=== PATIENT | male | born 1955 | race Caucasian/White ===

== ENCOUNTER 2017-09-03 15:51 | Emergency (ER) | payer MEDICARE ==
[~2017-09-03] VITALS: Ht 190.5 cm; Wt 150.0 kg
[2017-09-03 16:55] LABS: HEMATOCRIT 41.1 % (39.0-50.0); HEMOGLOBIN 13.9 g/dl (14.0-18.0); IMMATURE GRANULOCYTES 0.7 % (0.0-1.0); MEAN CELL VOLUME 90.5 fL CALC (80.0-100.0); MEAN CORPUSCULAR HGB 30.6 pG CALC (26.0-32.0); MEAN CORPUSCULAR HGB CONC 33.8 g/L CALC (32.0-36.0); NEUT# 19.6 thou/uL (1.82-7.42); RED BLOOD COUNT 4.54 mill/uL (4.70-6.10); RED CELL DISTRI WIDTH 14.4 % (11.5-15.5)
[2017-09-03 17:10] LABS: ALBUMIN 5.2 g/dL (3.2-5.0); ALKALINE PHOSPHATASE 82 u/l (38-126); ANION GAP 20 (6-22 (CALC)); BILIRUBIN, TOTAL 0.7 mg/dL (0.0-1.4); BUN 17 mg/dL (8-23); BUN/CREATININE RATIO 14 (12-20 (CALC)); CARBON DIOXIDE 24 mmol/l (22-30); CHLORIDE 99 mmol/l (95-108); CREATININE 1.2 mg/dL (0.7-1.3); GFR > 60 ML/MIN (>=60 (CALC)); GFR FOR AFR.AMER. > 60 ML/MIN (>=60 (CALC)); GLUCOSE 125 mg/dL (82-115); POTASSIUM 4.4 mmol/l (3.5-5.1); SGOT/AST 33 u/l (19-48); SGPT/ALT 57 u/l (11-66); SODIUM 138 mmol/l (137-146); TOTAL PROTEIN 8.3 g/dL (6.3-8.2)
[2017-09-03] MEDS ORDERED: GABAPENTIN100 MG PO (18:35)
[2017-09-03] MEDS ORDERED: AMOXICILLIN500 MG PO (18:36)
[2017-09-03] MEDS ORDERED: MOTRIN800 MG PO (18:36)
[2017-09-03] MEDS ORDERED: FISH OIL1000 MG PO (18:36)
[2017-09-03] MEDS ORDERED: ASPIRIN ADULT L81 M2 PO (18:38)
[2017-09-03] MEDS ORDERED: AMLODIPINE BESYL5 MG PO (18:38)
[2017-09-03 22:45] VITALS: BP 118/60
--- NOTE | 2017-09-05 14:39 | NUR ---
CULTURE RESULTS FAXED TO [address] [facility] AT [facility]
== END 2017-09-03 22:45 ==
LOC: ED 15:51
PROVIDERS: Emergency Medicine
DX: T81.4XXA Infection following a procedure, initial encounter (principal); L03.312 Cellulitis of back [any part except buttock and flank]; L02.212 Cutaneous abscess of back [any part, except buttock and flank]; R50.9 Fever, unspecified; D72.829 Elevated white blood cell count, unspecified; B96.20 Unspecified Escherichia coli [E. coli] as the cause of diseases classified elsewhere

== ENCOUNTER 2019-03-02 07:50 | Day surgery (SDC) | payer MEDICARE ==
[~2019-03-02 07:50] MED LIST: AMLODIPINE BESYL5 MG PO; AMOXICILLIN500 MG PO; ASPIRIN ADULT L81 M2 PO; ASPIRIN LOW DOS81 M1 PO; FISH OIL1000 MG PO; GABAPENTIN100 MG PO; MOTRIN800 MG PO; MULTIVITAMIN ME1 TA1; OMEGA 3340 MG PO; SYSTANE GEL1 ML OU; VANCOMYCIN IV
[2019-03-02 09:21] VITALS: BP 122/74
== END 2019-03-02 09:30 | disposition home or self-care (01) ==
LOC: ENDO 07:50
PROVIDERS: ATTEND Surgery
PROC: 0DJD8ZZ Inspection of Lower Intestinal Tract, Via Natural or Artificial Opening Endoscopic (ICD-10-PCS; principal; 2019-03-02)
DX: Z12.11 Encounter for screening for malignant neoplasm of colon (principal); K64.8 Other hemorrhoids; I10 Essential (primary) hypertension; Z86.010 Personal history of colon polyps

== ENCOUNTER 2023-03-12 14:08 | Emergency (ER) | payer MEDICARE ==
[~2023-03-12] VITALS: Ht 190.5 cm; Wt 133.8 kg
[2023-03-12 14:43] VITALS: BP 128/66
[2023-03-12 15:01] VITALS: BP 106/56
[2023-03-12 16:01] VITALS: BP 121/75
[2023-03-12 16:31] VITALS: BP 122/81
[2023-03-12 16:32] VITALS: BP 122/81
== END 2023-03-12 16:35 | disposition home or self-care (01) ==
LOC: ED 14:08
DX: J10.1 Influenza due to other identified influenza virus with other respiratory manifestations (principal); I10 Essential (primary) hypertension; F17.210 Nicotine dependence, cigarettes, uncomplicated; Z20.822 Contact with and (suspected) exposure to COVID-19

== ENCOUNTER 2023-03-16 09:17 | Inpatient (IN) | payer MEDICARE ==
[~2023-03-16] VITALS: Ht 190.5 cm; Wt 140.0 kg
[2023-03-16] VITALS (12 sets, daily range): BP systolic 101–191; BP diastolic 50–94
--- NOTE | 2023-03-16 09:17 | NUR ---
PATIENT TO ROOM VIA WHEELCHAIR. ABLE TO TRANSFER TO BED WITHOUT ASSISTANCE
[2023-03-16 09:46] LABS: BASO% 0.3 % (0-3); EOS% 2.8 % (0-8); HEMATOCRIT 38.3 % (39.0-50.0); HEMOGLOBIN 12.5 g/dl (14.0-18.0); IMMATURE GRANULOCYTES 0.3 % (0.0-5.0); LYMPH% 9.7 % (15-41); MEAN CELL VOLUME 93.2 fL CALC (80.0-100.0); MEAN CORPUSCULAR HGB 30.4 pG CALC (26.0-32.0); MEAN CORPUSCULAR HGB CONC 32.6 g/dL CAL (32.0-36.0); MONO% 5.6 % (2-13); NEUT# 10.99 thou/uL (1.82-7.42); NEUT% 81.3 % (42-76); RED BLOOD COUNT 4.11 mill/uL (4.70-6.10); RED CELL DISTRI WIDTH 13.5 % (11.5-15.5)
[2023-03-16 10:00] LABS: BILIRUBIN, TOTAL 0.3 mg/dL (0.2-1.3); TOTAL PROTEIN 7.2 g/dL (6.3-8.2)
--- NOTE | 2023-03-16 10:01 | NUR ---
PATIENT RESTING IN BED. IMPROVEMENT IN NAUSEA FOLLOWING BEEF CATTLE FARM MANAGER. AT BEDSIDE
[2023-03-16 10:23] LABS: POTASSIUM 5.8 mmol/l (3.5-5.1)
[2023-03-16 10:24] LABS: CREATININE 7.3 mg/dL (0.7-1.3)
--- NOTE | 2023-03-16 10:46 | NUR ---
EDUCATED ON PLAN OF CRAE. IV HYDRATION INFUSING. URINAL PROVIDED FOR URINE COLLECTION
[2023-03-16] MEDS ORDERED: EXCEDRIN EXTRA1 TA1 PO (10:56)
[2023-03-16 11:08] LABS: URINE BILIRUBIN - DIPSTICK NEGATIVE (NEGATIVE); URINE BLOOD DIPSTICK LARGE (NEGATIVE); URINE COLOR YELLOW; URINE GLUCOSE - DIPSTICK NEGATIVE (NEGATIVE); URINE KETONE NEGATIVE (NEGATIVE); URINE LEUK ESTERASE NEGATIVE (NEGATIVE); URINE PROTEIN - DIPSTICK >=300 mg/dL (NEG-TRACE); URINE SPECIFIC GRAVITY 1.025; URINE UROBILINOGEN - DIPSTICK 0.2 E.U./dL (0.2)
[2023-03-16 11:10] LABS: URINE NITRITE - DIPSTICK NEGATIVE (Negative)
[2023-03-16 11:18] LABS: URINE RBC >100 RBC/hpf (0-5)
[2023-03-16 11:19] LABS: URINE BACTERIA MODERATE hpf; URINE MUCUS FEW hpf (NONE-FEW)
[2023-03-16 11:20] LABS: URINE CASTS FEW lpf (NONE-RARE)
--- NOTE | 2023-03-16 11:30 | NUR ---
PATIENT RESTING IN BED. CALL LIGHT HAND. WATCHING TV
--- NOTE | 2023-03-16 12:13 | NUR ---
EDUCATED PATIENT ON CONT WAIT TIME. HE STATED UNDERSTANDING. CALL LIGHT IN HAND. RESTING IN BED. WATCHING TV
--- NOTE | 2023-03-16 12:40 | NUR ---
MD BEDSIDE TO DISCUSS TIM INSERTION
--- NOTE | 2023-03-16 13:37 | NUR ---
CALLED AND GAVE REPORT GO DIANDRA. PATIENT GOING TO ROOM 263 ON TELE #10 VIA . FAMILY NOTIFIED. SHE IS TO BRING C-PAP LATER TODAY.
--- NOTE | 2023-03-16 13:48 | NUR ---
PT [facility]ED [facility]IA [facility] WITH AUTOMATIC CIGAR WRAPPER TENDER. OREIENTATED PT TO ROOM AND CALL [facility]NA[facility] SYSTEM. ADMISSON ASSESSMENT COMPLETED. FLUIDS/ SNACK PROVIDED. EDUCATED PT IN PLAN OF CARE. PT INDICATED UNDERSTANDING. TELE MONITOR IN PLACE CONTINOUS MONITORING PER ED. FALL/SAFTEY PRECAUTION IN PLACE. CALL LIGHT WITHIN REACH.
--- NOTE | 2023-03-16 13:52 | NUR ---
PATIENT HANDED OFF TO MARI DIANDRA IS ON BREAK
--- NOTE | 2023-03-16 14:48 | NUR ---
PTS WEIGHT IS 133.4KG
--- NOTE | 2023-03-16 17:59 | NUR ---
PT RESTING IN BED TIM IN PLACE DRAINING URINE VIA GRAVITY. SHOWING BLOODY URINE. AWARE. STATES NO NEEDS AT THIS TIME. FALL/SAFTEY PRECAUTION IN [PLACE. CALL LIGHT WITHIN REACH
--- NOTE | 2023-03-16 19:15 | NUR ---
REPORT RECEIVED FROM Dinorah DEVLIN RN
--- NOTE | 2023-03-16 20:03 | NUR ---
LAB AT BEDSIDE
[2023-03-16 20:25] LABS: ALBUMIN 3.8 g/dL (3.2-5.0)
--- NOTE | 2023-03-16 20:26 | NUR ---
PATIENT HAS 4 SALON PASS METHOL PATCHES. BILATERAL SHOULDERS, AND BILATERAL HIPS. EXTRA PATCHES AT BEDSIDE. NO LIDOCAINE NOTED IN INGREDIENTS LIST. NOTED TO BE 3.1% CAMPHOR, 6.0% MENTHOL, 10% METHYL SALICYTATE. BAG OF 20 PATCHES, 16 RAMIANS. INSTRCUTED PATIENT TO SEND HOME OR LET US TAKE TO INVENTORY AND ADMINISTER. PER PATIENT HE WAS TOLD HE WOULD ONLY BE HERE FOR 48 HOURS, AND HE WILL NO STAY LONGER, REFUSES TO HAND OVER PATCHES. TIM DRAINING TO GRAVITY, CLOUDY BLOOD TINGEED URINE. PATIENT CPAP PLUGGED IN, DENIES ANY FURTHER NEEDS AT THIS TIME. CALL LIGHT AND BEDSIDE TABLE WITHIN REACH.
[2023-03-16 20:28] LABS: CREATININE 7.5 mg/dL (0.7-1.3); POTASSIUM 5.6 mmol/l (3.5-5.1)
--- NOTE | 2023-03-16 20:28 | NUR ---
REPORTED CRITICAL BUN OF 87 AND CREATINE OF 7.[address] DOBBS
--- NOTE | 2023-03-16 21:21 | NUR ---
LAB CALLED CRITICAL BUN OF 87 AND CREATNINE OF 7.5 . NURSE NOTIFIED.
[2023-03-17] VITALS (10 sets, daily range): BP systolic 134–149; BP diastolic 56–75
--- NOTE | 2023-03-17 02:05 | NUR ---
CALL TO [facility] [facility] REGARDING UNVERIFIED RX. PER GEOVANY AT [facility] SHE WILL REVISE.
--- NOTE | 2023-03-17 04:00 | NUR ---
PATIENT RESTING, NO APPARENT DISTRESS NOTED. RISE AND FALL OF CHEST NOTED. CALL LIGHT AND BEDSIDE TABLE WITHIN REACH.
[2023-03-17 05:24] LABS: BASO% 0.4 % (0-3); EOS% 3.5 % (0-8); HEMATOCRIT 35.1 % (39.0-50.0); HEMOGLOBIN 11.4 g/dl (14.0-18.0); IMMATURE GRANULOCYTES 0.3 % (0.0-5.0); LYMPH% 6.5 % (15-41); MEAN CELL VOLUME 92.6 fL CALC (80.0-100.0); MEAN CORPUSCULAR HGB 30.1 pG CALC (26.0-32.0); MEAN CORPUSCULAR HGB CONC 32.5 g/dL CAL (32.0-36.0); MONO% 5.9 % (2-13); NEUT# 11.75 thou/uL (1.82-7.42); NEUT% 83.4 % (42-76); RED BLOOD COUNT 3.79 mill/uL (4.70-6.10); RED CELL DISTRI WIDTH 13.4 % (11.5-15.5)
[2023-03-17 05:37] LABS: ALBUMIN 3.4 g/dL (3.2-5.0); BILIRUBIN, TOTAL 0.2 mg/dL (0.2-1.3); TOTAL PROTEIN 6.3 g/dL (6.3-8.2)
[2023-03-17 05:52] LABS: CREATININE 7.2 mg/dL (0.7-1.3); POTASSIUM 6.3 mmol/l (3.5-5.1)
--- NOTE | 2023-03-17 05:56 | NUR ---
NOTIFIED DR DOBBS OF CRITICAL BUN 90 CREATINE 7.2 POTASSIUM ON 6.3 NO BM SINCE KAYAXALATE
--- NOTE | 2023-03-17 06:00 | NUR ---
ORDER RECEIVED FOR 1GM CALCIUM GLUCONATE IV X 1 DOSE NOW
--- NOTE | 2023-03-17 06:15 | NUR ---
CALL TO HEAD OF DATA, NO CALCIUM GLUCONATE IN MS [facility], WILL HAVE TO BE BROUGHT UP FROM ED.
--- NOTE | 2023-03-17 07:00 | NUR ---
CALL TO PHARMACY FOR CALRIFICATION OF ORDERS, SPOKE TO YEE. PER YEE HOLD MEDICATIONS UNTIL FURTHER CLARIFICATION.
--- NOTE | 2023-03-17 08:00 | NUR ---
PT RESTING IN BED EATING BREAKFAST UPON ENTERING ROOM. ASSESSMENT ALLOWED. UPDATED PT IN [facility] CARE. PT INDICATED UNDERSTANING. TELE MONITOR IN PLACE, CONTINOUS MONITORING PER ED. PT COMPLAINS OF BURINING SENSATION. TIM CATHETER IN PLACE, DRAINING RED/BLOODY URINE. MD AWARE.FALL/SAFTEY PRECAUTION IN PLACE. CALL LIGHT WITHIN REACH.
--- NOTE | 2023-03-17 09:40 | NUR ---
PT REFUSED AMBULATION. STATES HE HAS BEEN MOVING AROUND IN HIS ROOM. HE IS SITTING AT THE EDGE OF HIS BED. NURSE IS IN THE ROOM.
--- NOTE | 2023-03-17 10:35 | NUR ---
called dr. hernandez office spoke to ada in regards to consultation.
[2023-03-17 11:07] LABS: ALBUMIN 3.3 g/dL (3.2-5.0); TOTAL PROTEIN 6.2 g/dL (6.3-8.2)
[2023-03-17 11:10] LABS: POTASSIUM 5.6 mmol/l (3.5-5.1)
[2023-03-17 11:13] LABS: CREATININE 7.3 mg/dL (0.7-1.3)
--- NOTE | 2023-03-17 13:55 | NUR ---
PT COMPLAINING OF BURNING SENSATION. PT MEDICATED FALL/SAFTEY PRECAUTION IN PLACE. CALL LIGHT WITHIN REACH
--- NOTE | 2023-03-17 14:00 | NUR ---
BLADDER IRRGATION PERFORMED, NO STONE NOTED. PT TOELRATED WELL/ FALL/SAFTEY PRECAUTION IN PLACE, CALL LIGHT WITHIN REACH.
[2023-03-17 15:14] LABS: ALBUMIN 3.3 g/dL (3.2-5.0); TOTAL PROTEIN 6.1 g/dL (6.3-8.2)
[2023-03-17 15:21] LABS: POTASSIUM 5.5 mmol/l (3.5-5.1)
--- NOTE | 2023-03-17 16:00 | NUR ---
PT RESTING IN BED WITH TIM CATHETER IN PLACE, DRAINING URINE VIA GRAVITY. MILI URINE COLOR NOTED. PT STATES NO NEEDS AT THIS TIME. FALL/SAFTEY PRECAUTION IN PLACE. CALL LIGHT WITHIN REACH
--- NOTE | 2023-03-17 19:20 | NUR ---
BEDSIDE SHIFT REPORT RECEIVED FROM Dinorah DEVLIN RN
--- NOTE | 2023-03-17 20:10 | NUR ---
PATIENT RESTING, CPAP IN PLACE WATCHING TV. PATIENT DENIES ANY CURRENT PAIN. CALL LIGHT AND BEDSIDE TABLE WTIHIN REACH.
[2023-03-18] VITALS (8 sets, daily range): BP systolic 114–144; BP diastolic 38–67
--- NOTE | 2023-03-18 01:30 | NUR ---
TELEMETRY BATTERY CHANGED AT THIS TIME. PATIENT RESTING, CPAP IN PLACE, DENIES ANY CURRENT NEEDS. CALL LIGHT AND BEDSIDE TABLE WITHIN REACH.
--- NOTE | 2023-03-18 04:10 | NUR ---
PATIENT RESTING, NO APPARENT DISTRESS NOTED. CALL LIGHT AND BEDSIDE TABLE WITHIN REACH. RESPIRATIONS EVEN AND UNLABORED. RISE AND FALL OF CHEST NOTED.
[2023-03-18 05:14] LABS: BASO% 0.4 % (0-3); EOS% 4.9 % (0-8); HEMATOCRIT 31.6 % (39.0-50.0); HEMOGLOBIN 10.5 g/dl (14.0-18.0); IMMATURE GRANULOCYTES 0.2 % (0.0-5.0); MEAN CELL VOLUME 91.9 fL CALC (80.0-100.0); MEAN CORPUSCULAR HGB 30.5 pG CALC (26.0-32.0); MEAN CORPUSCULAR HGB CONC 33.2 g/dL CAL (32.0-36.0); MONO% 6.2 % (2-13); NEUT# 11.17 thou/uL (1.82-7.42); NEUT% 82.3 % (42-76); RED BLOOD COUNT 3.44 mill/uL (4.70-6.10); RED CELL DISTRI WIDTH 13.4 % (11.5-15.5)
[2023-03-18 05:33] LABS: ALBUMIN 3.2 g/dL (3.2-5.0); POTASSIUM 4.9 mmol/l (3.5-5.1)
[2023-03-18 05:44] LABS: CREATININE 7.2 mg/dL (0.7-1.3)
--- NOTE | 2023-03-18 05:44 | NUR ---
CRITICAL BUN OF 87 AND CREATINE 7.2
--- NOTE | 2023-03-18 08:22 | NUR ---
PERFROMED BEDSIDE REPORT WITH INVENTORY CONTROL/SHIPPING RECEIVING. PT SITTING UP ON SIDE OF BED WITH BEDSIDE TABLE INFRONT OF HIM. PT IS A/OX3, RM AIR. TIM CATHETER NOTED WITH DARK YELLOW URINE OUTPUT TRACE OF BLOOD. PT STATED HAVING MILD PAIN IN PELVIC AND RADIATING IN LEG. OFFERED PAIN MEDICATION OR HEAT PACK. PT REFUSED AT THIS TIME. EDUCATED PT ON PLAN OF CARE FOR TODAY. CALL LIGHT WITHIN REACH AND SAFETY PRECAUTIONS IN PLACE.
--- NOTE | 2023-03-18 12:00 | NUR ---
PT LAYING BACK IN BED SUPINE, DENIES ANY PAIN STATES "JUST FEELING TIRED." PT VITALS WNL AT THIS TIME. CALL LIGHT WITHIN REACH AND SAFETY PRECAUTIONS IN PLACE.
--- NOTE | 2023-03-18 16:37 | NUR ---
PT WAS UP INTO BATHROOM, GAIT STEADY. PT WASHED UP AT SINK AND TRIED TO HAVE BM. PT NOW LAYING IN BED SEMI FOWLERS, CALL LIGHT WITHIN REACH AND SAFETY PRECAUTIONS IN PLACE. DENIES ANY PAIN AT THIS TIME.
--- NOTE | 2023-03-18 20:00 | NUR ---
RECEIVED REPORT FROM NURSE RACHEL, PATIENT ALERT ORIENTED IV ON LFA G 20 ONGOING NS @ 100CC/HR AND [id number] AT 75CC/HR INFUSING WELL, HOOKED ON TELEEMTRY, ACTIVE BOWLE SOUND LBM 03/18, INDWELLING TIM CATHETER DRAINING MILI COLOR URINE, CALL LIGHT IN REACH.
[2023-03-19] VITALS (7 sets, daily range): BP systolic 118–160; BP diastolic 59–75
--- NOTE | 2023-03-19 | NUR ---
PATIENT RESTING IJN BED, NOT IN DISTRESS, WEARING HIS HOME CPAP, CALL LIGHT IN REACH.
--- NOTE | 2023-03-19 04:17 | NUR ---
V/S OBTAINED AND WEIGHED. URINE STRAINED, PATIENT NOT IN DISTRESS CALL LIGHT IN REACH.
[2023-03-19 05:49] LABS: BASO% 0.3 % (0-3); EOS% 4.6 % (0-8); HEMATOCRIT 30.3 % (39.0-50.0); HEMOGLOBIN 10.1 g/dl (14.0-18.0); IMMATURE GRANULOCYTES 0.4 % (0.0-5.0); LYMPH% 5.6 % (15-41); MEAN CELL VOLUME 91.3 fL CALC (80.0-100.0); MEAN CORPUSCULAR HGB 30.4 pG CALC (26.0-32.0); MEAN CORPUSCULAR HGB CONC 33.3 g/dL CAL (32.0-36.0); MONO% 5.9 % (2-13); NEUT# 11.82 thou/uL (1.82-7.42); NEUT% 83.2 % (42-76); RED BLOOD COUNT 3.32 mill/uL (4.70-6.10); RED CELL DISTRI WIDTH 13.5 % (11.5-15.5)
[2023-03-19 06:00] LABS: ALBUMIN 3.2 g/dL (3.2-5.0); POTASSIUM 4.1 mmol/l (3.5-5.1); TOTAL PROTEIN 6.2 g/dL (6.3-8.2)
[2023-03-19 06:33] LABS: BILIRUBIN, TOTAL 0.2 mg/dL (0.2-1.3); CREATININE 6.7 mg/dL (0.7-1.3)
--- NOTE | 2023-03-19 06:50 | NUR ---
RECEIVED A PHONE CALL FROM LAB CRITICAL BUN AND CREATININE DR. COHN AWARE LABS DESCENDING.
--- NOTE | 2023-03-19 08:00 | NUR ---
PT IN BED WITH HOB UP; AWAKE, ALERT AND ORIENTED X 3, PT HAS NO C/O PAIN ONLY C/O NAUSEA; MEDICATED WITH PRN ZOFRAN.#20 TO LFA CLEAN AND INTACT WITH NA BICARB INFUSING AT 75ML/HR. TELE ON WITH ALL LEADS ATTACHED. PT AMBULATES TO BATHROOM FOR TOILETING NEEDS. PT HAS CALL LIGHT WITHIN REACH AND ALL SAFETY MEASURES IN PLACE AT THIS TIME.
--- NOTE | 2023-03-19 11:54 | NUR ---
CONTACTED [facility] IN REFERENCE TO A NUTRITION CONSULT AT 1154 HRS.
--- NOTE | 2023-03-19 12:00 | NUR ---
PT IN BED WITH HOB; ALERT AND OREINTED X3, PT HAS NO C/O PAIN AND NAUSEA HAS IMPROVED. TIM INTACT WITH MILI COLORED URINE DRAINING. CALL LIGHT WITHIN REACH AND ALL SAFETY MEASURES IN PLACE AT THIS TIME.
--- NOTE | 2023-03-19 16:00 | NUR ---
PT IN BED ALERT AND ORIENTED. PT HAS NO C/O PAIN AT THIS TIME. TIM INTACT DRAINING MILI COLORED URINE. PT HAS CALL LIGHT WITHIN REACH AND ALL SAFETY MEASURES IN PLACE AT THIS TIME.
--- NOTE | 2023-03-19 19:18 | NUR ---
received report from nurse dirk, patient picked up by [facility] at 0718, transported via stretcher, telemetry removed,v/s taken and recorded.
--- NOTE | 2023-03-19 19:53 | NUR ---
REPORT GIVEN TO NURSE CRUZ.
== END 2023-03-19 19:18 | DRG 683 ==
LOC: ED 09:17 → ED-I 12:30 → ED 12:48 → MS2 12:49
PROVIDERS: Family Medicine; Internal Medicine Nephrology; Nurse Practitioner Family; ADMIT Internal Medicine; ATTEND Internal Medicine
PROC: 0T9B70Z Drainage of Bladder with Drainage Device, Via Natural or Artificial Opening (ICD-10-PCS; principal; 2023-03-16)
DX: N17.0 Acute kidney failure with tubular necrosis (principal); E87.20 Acidosis, unspecified; N39.0 Urinary tract infection, site not specified; B96.20 Unspecified Escherichia coli [E. coli] as the cause of diseases classified elsewhere; E87.5 Hyperkalemia; N21.0 Calculus in bladder; E86.0 Dehydration; N20.0 Calculus of kidney; N40.1 Benign prostatic hyperplasia with lower urinary tract symptoms; R33.8 Other retention of urine; N25.81 Secondary hyperparathyroidism of renal origin; R80.9 Proteinuria, unspecified; E86.9 Volume depletion, unspecified; I95.9 Hypotension, unspecified; I10 Essential (primary) hypertension; E66.01 Morbid (severe) obesity due to excess calories; F17.210 Nicotine dependence, cigarettes, uncomplicated; Z20.822 Contact with and (suspected) exposure to COVID-19
CPT/HCPCS: J3420

== ENCOUNTER 2023-05-12 12:49 | Inpatient (IN) | payer MEDICARE ==
[~2023-05-12] VITALS: Ht 190.5 cm; Wt 110.0 kg
[~2023-05-12 12:49] MED LIST changes: +EXCEDRIN EXTRA1 TA1 PO
--- NOTE | 2023-05-12 13:41 | NUR ---
PATIENT TO TRIAGE ROOM VIA WHEELCHAIR AND PHTYSICIAN NOTIFIED OF STATUS
[2023-05-12 16:01] LABS: BASO% 0.9 % (0-3); EOS% 6.8 % (0-8); HEMATOCRIT 25.7 % (39.0-50.0); IMMATURE GRANULOCYTES 0.4 % (0.0-5.0); LYMPH% 14.2 % (15-41); MEAN CELL VOLUME 91.1 fL CALC (80.0-100.0); MEAN CORPUSCULAR HGB CONC 30.7 g/dL CAL (32.0-36.0); NEUT# 6.94 thou/uL (1.82-7.42); NEUT% 67.7 % (42-76); RED BLOOD COUNT 2.82 mill/uL (4.70-6.10); RED CELL DISTRI WIDTH 14.1 % (11.5-15.5)
[2023-05-12 16:09] LABS: HEMOGLOBIN 7.9 g/dl (14.0-18.0)
[2023-05-12 16:28] LABS: ALBUMIN 3.8 g/dL (3.2-5.0); POTASSIUM 3.5 mmol/l (3.5-5.1)
[2023-05-12 16:44] LABS: BILIRUBIN, TOTAL 0.9 mg/dL (0.2-1.3); C-REACTIVE PROTEIN 22.1 mg/dL (0-0.9); CREATININE 4.3 mg/dL (0.7-1.3)
--- NOTE | 2023-05-12 17:10 | NUR ---
PT LAYING IN BED, AT BEDSDIE. NO DISTRESS NOTED AT THIS TIME.
--- NOTE | 2023-05-12 18:18 | NUR ---
PT MEDICATED PER eMAR. PT STATES THAT HE HAS AN CEE FOR DIALYSIS TOMORROW. PROVIDER NOTIFIED.
--- NOTE | 2023-05-12 18:28 | NUR ---
ATTEMPTED TO DO A MED REC WITH PT, PT DOES NOT HAVE A LIST OF MEDS HE TAKES AT HOME AND DOES NOT REMEMBER THE NAMES OF THE MEDICATIONS.
[2023-05-12 21:33] VITALS: BP 114/63
--- NOTE | 2023-05-12 21:53 | NUR ---
PT CARE REPORT GIVEN TO JUAN ALBERTO WILEY. PT TRANSPORTED TO MS ROOM 267
--- NOTE | 2023-05-12 22:45 | NUR ---
PT RECEIVED FROM ER AT 2130 VIA WC. C/O WEAKNESS. ASSITED TO BED. ALERT AND ORIENTED. PLACED ON AT 2 LITERS. 02 SAT 90. HR 129. PLACED ON TELEMETRY. NOTIFIED. NEW ORDER FOR EKG. PT IS ALERT AND ORIENTED. DENIES PAIN. DOES NOT KNOW HIS HOME MEDICATIONS. [facility] WAS CALLED. THEY ARE CLOSED AT 0. FLUIDS INFUSING ORDERED.PT HAS A DIALYSIS CATH INTACT LEFT CHEST. CALL LIGHT IN REACH.
--- NOTE | 2023-05-12 23:16 | NUR ---
CUSTOMER SALES DISTRIBUTOR NOTIFIED OF NEED FOR POSTERIOR EKG, CUSTOMER SALES DISTRIBUTOR NOTIFIED.
[2023-05-12 23:20] VITALS: BP 113/50
[2023-05-12 23:24] LABS: BASO% 0.3 % (0-3); EOS% 2.1 % (0-8); HEMATOCRIT 25.4 % (39.0-50.0); IMMATURE GRANULOCYTES 0.2 % (0.0-5.0); LYMPH% 3.5 % (15-41); MEAN CELL VOLUME 89.8 fL CALC (80.0-100.0); MEAN CORPUSCULAR HGB 28.3 pG CALC (26.0-32.0); MEAN CORPUSCULAR HGB CONC 31.5 g/dL CAL (32.0-36.0); MONO% 4.9 % (2-13); NEUT# 11.16 thou/uL (1.82-7.42); RED BLOOD COUNT 2.83 mill/uL (4.70-6.10)
--- NOTE | 2023-05-12 23:32 | NUR ---
@ 2332 SPOKE W/ VIVIANA AT [facility] ABOUT THE PTS STEMI TRANSFER AND GAVE HER THE PTS INFO. VIVIANA ASKED FOR A FACESHEET TO BE FAXED TO [phone]. VIVIANA GIVEN DR TREJO CELL NUMBER TO CONNECT THE [facility] TO HIM AND SHE SAID THAT THEY WILL CALL ME BACK. 2346 SPOKE W/ SAM AT [facility] ABOUT NEEDING TRANSPORT TO [facility] FOR A STEMI PT. SAM CALLED BACK @ 2354 AND GAVE ME AN ETA OF [address] M[address] AM[address]. 2347 [address] SAM ([facility] LUNDBERG) SPOKE W/ DR COLLINS ABOUT THE PTS TRANSFER FOR STEMI. 2352 PER VIVIANA AT [facility] THE PT IS NOT IN THERE NETWORK SINCE HE HAS [employer] AND WILL HAVE TO PAY IF THEY ACCEPT THE PT. I ASKED IF THEY WERE SAYING THAT THEY WERE NOT GOING TO ACCEPT THE PT A STEMI PT BECAUSE OF THIS AND SHE SAID THAT THEY WILL CALL ME BACK. 0001 [facility] CALLED BACK AND BLUNTLY TOLD ME THAT THE PT IS NOT IN THEIR NETWORK WITH [employer] SO WE NEED TO INFORM THE PT THAT THEY WILL HAVE TO PAY IF THEY GO TO [facility]. I INFORMED [facility] THAT THIS IS A DELAY IN PT CARE AND DO THEY REALLY EXPECT US TO CALL OTHER FACILITIES TO SEE IF THEY TAKE THE PTS INSURANCE FOR A STEMI TRANSFER. SHE SAID THAT THIS IS WHATS BEST FOR THE PT THAT IF WE HAVE ISSUES FINDING PLACEMENT THEN TO CALL THEM BACK. I INFORMED THE PTS NURSE AND THE NURSING RECRUITMENT ADVERTISING MANAGER ON WHAT WAS SAID AND MADELEINE SAID THAT SHE WOULD CALL THE DON AND THEN CALL [facility] HERSELF TO SHAKA TO THEM ABOUT THIS.
--- NOTE | 2023-05-12 23:50 | NUR ---
pts heart rate on telemetry running sinus tach to 140's. pt is diaphoratic. md aware . ekg ordered. results sent to md renewable energy consultant. Stemi alert called at 2308. second ekg done and sent to renewable energy consultant md. pt was given 4 bay aspirin at 2345. bp [id number].
[2023-05-13] VITALS (27 sets, daily range): BP systolic 82–141; BP diastolic 35–83
--- NOTE | 2023-05-13 00:15 | NUR ---
2152- spoke with nurses on unit regarding patient VS, elevated HR temp and low pulse ox. Placed telemetry on patient to improve ability to monitor until able to improve VS namely Temp and O2 sats. Will order EKG to compare. 2354 STEMI alert acalled earlier and process followed with some limitations related to B/P, baby aspirin 324 mg given PO, Nitro gtt held related to B/P 113/64 Dr. Lara aware. has also been in convo with Dr. Melendrez and decision made to keep pt here and transfer to ICU and treat SEPSIS.
--- NOTE | 2023-05-13 01:12 | NUR ---
[id number] report rec'd per robert hutson. rec'd per bed to icu1 from [facility]. denies distress. o2 cont per [facility]. personnel monitor shows sinus rhythm ivcd. dialysis port in place lt chest. oriented to room. saline lock x2 in place. abx began as ordered. lab was here & sukhwinder blood. xray was here & obtained pcxr. fall precautions cont.
--- NOTE | 2023-05-13 01:25 | NUR ---
REPORT GIVEN TO ICU NURSE. PT TRANSFERRED TO ICU AT 0115 IN HIS BED AND ON 02 AT 4 LITERS. ALERT AND ORIENTED.
--- NOTE | 2023-05-13 04:00 | NUR ---
eyes closed. no distress. school lunch monitor shows sinus rhythm ivcd.
--- NOTE | 2023-05-13 05:00 | NUR ---
lab here. blood drawn.
--- NOTE | 2023-05-13 05:36 | NUR ---
no c/o chest pain. has not voided.
[2023-05-13 05:55] LABS: HEMATOCRIT 24.7 % (39.0-50.0); HEMOGLOBIN 7.7 g/dl (14.0-18.0); MEAN CELL VOLUME 91.1 fL CALC (80.0-100.0); MEAN CORPUSCULAR HGB 28.4 pG CALC (26.0-32.0); MEAN CORPUSCULAR HGB CONC 31.2 g/dL CAL (32.0-36.0); RED BLOOD COUNT 2.71 mill/uL (4.70-6.10); RED CELL DISTRI WIDTH 14.1 % (11.5-15.5)
[2023-05-13 06:21] LABS: CHOLESTEROL HDL RATIO 5.5 (<4.4 (CALC)); MAGNESIUM 1.7 mg/dL (1.6-2.3); POTASSIUM 3.5 mmol/l (3.5-5.1)
[2023-05-13 06:37] LABS: BASO% 0.5 % (0-3); EOS% 5.9 % (0-8); HEMATOCRIT 24.8 % (39.0-50.0); HEMOGLOBIN 7.7 g/dl (14.0-18.0); IMMATURE GRANULOCYTES 0.5 % (0.0-5.0); LYMPH% 7.2 % (15-41); MEAN CELL VOLUME 90.8 fL CALC (80.0-100.0); MEAN CORPUSCULAR HGB 28.2 pG CALC (26.0-32.0); MONO% 3.4 % (2-13); NEUT# 9.12 thou/uL (1.82-7.42); NEUT% 82.5 % (42-76); PLATELET COUNT 383 thou/uL (130-400); RED BLOOD COUNT 2.73 mill/uL (4.70-6.10); RED CELL DISTRI WIDTH 14.2 % (11.5-15.5)
[2023-05-13 06:39] LABS: CREATININE 5.1 mg/dL (0.7-1.3)
[2023-05-13 07:02] LABS: ALBUMIN 3.3 g/dL (3.2-5.0); BILIRUBIN, TOTAL 0.7 mg/dL (0.2-1.3); POTASSIUM 3.2 mmol/l (3.5-5.1); TOTAL PROTEIN 6.9 g/dL (6.3-8.2)
[2023-05-13 07:04] LABS: CREATININE 5.1 mg/dL (0.7-1.3)
--- NOTE | 2023-05-13 07:15 | NUR ---
PATIENT LAYING IN BED WITH EYES OPEN, AOX4, NON LABORED RESPIRATIONS, NO C/O OF PAIN, LUNG SOUNDS- UPPER LOBES CLEAR, LOWER LOBES DIMINISHED. ANSWERING QUESTIONS APPROPRATELY. ASSESSMENT PERFORMED. PATIENT HAD SOME QUESTIONS ABOUT POC. NO OTHER NEEDS STATED.
--- NOTE | 2023-05-13 09:30 | NUR ---
PATIENT RESTING IN BED AOX3. NO COMPLAINTS OF PAIN, REFUSED BREAKFAST (DIDNT LIKE THE BREAKFAST, NOT HUNGRY). DR LOBATO'S OFFICE CONTACTED FOR CONSULTATION.
[2023-05-13 10:21] LABS: URINE BLOOD DIPSTICK Large (NEGATIVE); URINE CLARITY Cloudy; URINE COLOR Brown; URINE GLUCOSE - DIPSTICK Negative (NEGATIVE); URINE KETONE Negative (NEGATIVE); URINE LEUK ESTERASE Negative (Negative); URINE NITRITE - DIPSTICK Negative (Negative); URINE PH 6.5 (4.5-8.0); URINE PROTEIN - DIPSTICK >=300 mg/dL (NEG-TRACE); URINE UROBILINOGEN - DIPSTICK 0.2 E.U./dL (0.2)
[2023-05-13 10:29] LABS: URINE WBC 0-2 WBC/hpf (0-5)
[2023-05-13 10:30] LABS: URINE BACTERIA FEW hpf
[2023-05-13] MEDS ORDERED: ULTRAM50 MG PO (10:31)
[2023-05-13] MEDS ORDERED: AMLODIPINE BES2.5 MG PO (10:31)
[2023-05-13] MEDS ORDERED: LOPRESSOR25 M1 PO (10:33)
[2023-05-13] MEDS ORDERED: BL ASPIRIN325 MG PO (10:35)
[2023-05-13 10:37] LABS: URINE COARSE GRANULAR CAST FEW lpf
[2023-05-13 10:38] LABS: URINE FINE GRAN CAST RARE lpf
[2023-05-13] MEDS ORDERED: PHOSLO667 MG PO (10:38)
--- NOTE | 2023-05-13 11:00 | NUR ---
Pateint resting in bed comfortably. No c/o of pain or any needs indicated. Dr. Lara made his rounds and updated pateint on POC. Patient was on board with plan and verbalized understanding.
--- NOTE | 2023-05-13 13:00 | NUR ---
Patient resting in bed. AOX4, non labored respirations and no c/o of pain. Bed in low postion and call light within reach.
--- NOTE | 2023-05-13 14:21 | NUR ---
S: MIGUELINA MELENDEZ is a 68 M who presents with sepsis and pneumonia. He has a history of hypertension, arthritis, kidney disease. All medications in patient's chart were reviewed. O: VS: BP 141/77 mmhg, P 96 bpm, RR 24 bpm ,T 97.6 F W 110kg, HT 75 inch, Scr= 5.1 mg/dL,CrCl= 21.6 ml/min (Pt receives dialysis) A: Blood culture is pending. P: Patient is on cefepime 1gm IV daily and metronidazole 500mg IV Q8h. Vancomycin ordered for pharmacy to dose. Start vancomycin 2gm IV loading dose x1. Then vancomycin 1gm IV 3x per week after dialysis. Vancomycin trough to be drawn on 05/15/23 before next dialysis session. Vancomycin goal trough is between 15-20 mcg/ml. Pharmacy will follow and or advise on antibiotics use as needed.
--- NOTE | 2023-05-13 15:15 | NUR ---
PATIENT RESTING IN BED, AOX3, NO C/O OF PAIN, NO NEEDS AT THIS TIME. PATIENT IS RECIEVING HIS IV ANTIBIOTICS, VITALS STABLE. BED IN LOW POSITION WITH UPPER BED RAILS RAISED AND CALL LIGHT WITHIN REACH.
--- NOTE | 2023-05-13 16:27 | NUR ---
PATIENT HAS LEFT HAS UNIT VIA WHEELCHAIR WITH [facility] TO RECIEVE HEMO DIALYSIS. PATIENT IS STABLE WITH NO S/S OF PAIN OR DISTRESS.
--- NOTE | 2023-05-13 16:30 | NUR ---
TELEPHONE REPORT RECEIVED FROM Kristian BRAND RN, PT BROUGHT TO DIALYSIS SUITE VIA WC BY BURAK FLORES. PT IN PRINCIPAL SYSTEMS ENGINEER AND IS ALERT, AWAKE, AND IN NO DISTRESS.
--- NOTE | 2023-05-13 16:41 | NUR ---
HEMODIALYSIS TREATMENT INITIATED AT 1641. SEE HEMODIALYSIS TREATMENT PROCESS INTERVENTION AND TABLO TREATMENT FLOWSHEET FOR TREATMENT SPECIFIC DETAILS.
--- NOTE | 2023-05-13 19:31 | NUR ---
REPORT RECIEVED FROM OFF GOING NURSE. PATIENT IN DIALYSIS.
--- NOTE | 2023-05-13 20:05 | NUR ---
HEMODIALYSIS TREATMENT COMPLETED AT 2004. SEE HEMODIALYSIS TREATMENT PROCESS INTERVENTION AND TABLO TREATMENT FLOWSHEET FOR TREATMENT SPECIFIC DETAILS
--- NOTE | 2023-05-13 20:25 | NUR ---
PT RETURNED TO ICU BY Derek GORDON CNA, TELEPHONE REPORT ENDORSED TO Alejandro SUMMERS LPN, PT'S PRIMARY NURSE.
--- NOTE | 2023-05-13 20:27 | NUR ---
PATIENT RETURNED FROM DIALYSIS. NO ACUTE DISTRESS NOTED. HE DENIES ANY PAIN OR DISCOMFORT NOTED AT THIS TIME. ASSESSMENT COMPLETED (SEE INTERVENTIONS). WILL CONTINUE TO MONITOR.
--- NOTE | 2023-05-14 | NUR ---
PATIENT SLEEPING COMFORTABLY. NO ACUTE DISTRESS NOTED. WILL CONTINUE TO MONITOR.
--- NOTE | 2023-05-14 04:00 | NUR ---
PATIENT SLEEPIMG NO ACUTE DISTRESS NOTED.
--- NOTE | 2023-05-14 07:00 | NUR ---
REPORT RECIEVED FROM NIGHT RN. PT ASLEEP IN BED. VSS.
[2023-05-14 07:46] LABS: HEMATOCRIT 25.3 % (39.0-50.0); HEMOGLOBIN 7.7 g/dl (14.0-18.0); MEAN CELL VOLUME 91.7 fL CALC (80.0-100.0); MEAN CORPUSCULAR HGB 27.9 pG CALC (26.0-32.0); MEAN CORPUSCULAR HGB CONC 30.4 g/dL CAL (32.0-36.0); RED BLOOD COUNT 2.76 mill/uL (4.70-6.10); RED CELL DISTRI WIDTH 14.1 % (11.5-15.5)
[2023-05-14 08:08] LABS: ALBUMIN 3.1 g/dL (3.2-5.0); BILIRUBIN, TOTAL 0.8 mg/dL (0.2-1.3); CREATININE 4.2 mg/dL (0.7-1.3); MAGNESIUM 1.6 mg/dL (1.6-2.3); POTASSIUM 3.2 mmol/l (3.5-5.1); TOTAL PROTEIN 6.2 g/dL (6.3-8.2)
--- NOTE | 2023-05-14 08:30 | NUR ---
ASSESSMENT COMPLETE. PT IS A/O. LUNGS CLEAR. PT IS ON 2L NC. NO COUGH NOTED BUT PT BECOMES SOB WITH ACTIVITY. HEART RHYTHM REGULAR; PT IS NSR WITH OCCASIONAL PVC'S. BOWEL SOUNDS ACTIVE. ABDOMEN SOFT/DISTENDED BUT NON-TENDER. PT VOIDS WITHOUT DIFFICULTY. SKIN W/D/I. PULSES STRONG ALL EXTREMETIES. IV ACCESS 22G R FOREARM FLUSHES EASILY. 20RAC DOES NOT FLUSH; IV REMOVED. PT ALSO HAS PERMANENT DIALYSIS CATH ON L CHEST. PT RECIEVED DIALYSIS IN HOSPITAL YESTERDAY. PT REQUESTING TO USE RESTROOM; AMBULATED INDEPENDENTLY. PT BACK IN BED; REPORTED A BM. VSS AT THIS TIME. CALL LIGHT WITHIN REACH.
--- NOTE | 2023-05-14 09:14 | NUR ---
DR. COLLINS AT BEDSIDE TO ASSESS PT.
--- NOTE | 2023-05-14 11:13 | NUR ---
PT LYING IN BED WATCHING TV. CALL LIGHT WITHIN REACH. VSS.
--- NOTE | 2023-05-14 12:02 | NUR ---
PT SITTING AT EDGE OF BED EATING LUNCH. PT DENIED ANY NEEDS. CALL [facility] WITHIN REACH. VSS.
--- NOTE | 2023-05-14 12:06 | NUR ---
DR. SAUCEDO AT BEDSIDE TO SPEAK WITH PT.
--- NOTE | 2023-05-14 14:15 | NUR ---
PT LYING IN BED WATCHING TV. DENIES ANY NEEDS. CALL LIGHT WITHIN REACH. VSS.
--- NOTE | 2023-05-14 16:00 | NUR ---
PT LYING IN BED EYES CLOSED. NO CHANGES AT THIS TIME. CALL LIGHT WITHIN REACH. VSS.
--- NOTE | 2023-05-14 17:40 | NUR ---
05/14/23 PT orders received and pt chart reviewed. Upon PT arrival pt was getting up from bed and ambulated independently to the bathroom. Per RN pt has been perform without assistance. No acute PT needs at this time. PT will sign off Thank you for this consult. Janel Robles, PT, DPT
--- NOTE | 2023-05-14 18:00 | NUR ---
PT IS LYING IN BED WATCHING TV. PT ATE DINNER AT EDGE OF BED AND IS NOW RESTING. CALL LIGHT AND BELONGINGS WITHIN REACH. VSS.
--- NOTE | 2023-05-14 19:00 | NUR ---
REPORT RECIEVED FROM OFF GOING NURSE.
--- NOTE | 2023-05-14 20:00 | NUR ---
PATIENT NOTED LYING IN BED WITH NO ACUTE DISTRESS NOTED. HE DENIES ANY PAIN OR DISCOMFORT. VSS. ASSESSMENT COMPLETED (SEE INTERVENTIONS). BED LOCKED, IN LOW POSITION, CALL LIGHT WITHIN REACH.
--- NOTE | 2023-05-15 | NUR ---
PATIENT LYING IN BED RESTING COMFORTABLY WITH DAUGHTER AT BEDSIDE. PATIENT IS MORE CALM AND COOPERATIVE. NO ACUTE DISTRESS NOTED.
--- NOTE | 2023-05-15 | NUR ---
PATIENT LYING IN BED RESTING COMFORTABLY WITH NO ACUTE DISTRESS NOTED. VSS. HE DENIES ANY PAIN OR DISOCMFORT. BED LOCKED, IN LOW POSITION, CALL LIGHT WITHIN REACH.
--- NOTE | 2023-05-15 04:00 | NUR ---
NO ACUTE DISTRESS NOTED. PATIENT NOTED LYING IN BED SLEEPIMG. CALL LIGHT WITHIN REACH.
[2023-05-15 06:06] LABS: BASO% 0.8 % (0-3); EOS% 8.8 % (0-8); HEMATOCRIT 24.3 % (39.0-50.0); HEMOGLOBIN 7.7 g/dl (14.0-18.0); IMMATURE GRANULOCYTES 0.4 % (0.0-5.0); LYMPH% 13.2 % (15-41); MEAN CELL VOLUME 90.3 fL CALC (80.0-100.0); MEAN CORPUSCULAR HGB 28.6 pG CALC (26.0-32.0); MEAN CORPUSCULAR HGB CONC 31.7 g/dL CAL (32.0-36.0); MONO% 10.3 % (2-13); NEUT# 5.09 thou/uL (1.82-7.42); NEUT% 66.5 % (42-76); RED BLOOD COUNT 2.69 mill/uL (4.70-6.10); RED CELL DISTRI WIDTH 13.9 % (11.5-15.5)
[2023-05-15 06:22] LABS: ALBUMIN 2.9 g/dL (3.2-5.0); BILIRUBIN, TOTAL 0.7 mg/dL (0.2-1.3); CREATININE 4.8 mg/dL (0.7-1.3); MAGNESIUM 1.6 mg/dL (1.6-2.3); POTASSIUM 2.9 mmol/l (3.5-5.1)
--- NOTE | 2023-05-15 08:00 | NUR ---
RCD REPORT FROM N[employer]YFT. PT IS A/OX3. PT IS AMBULATORY. PT IS ON 1L NC WITH NO DISTRESS NOTED. SKIN IS INTACT. PT HAS A LEFT CHEST PORT FOR DIALYSIS NOTED. BOWEL SOUNDS ACTIVE. LUNGS ARE SLIGHTLY DIMINISHED. ABD IS SOFT AND NONTENDER. HR IS WNR. SR ON MONITOR. IV IS BEING DISCONTINUED DUE TO PT BEING DISCHARGED SHORTLY. PT HAS AN APPOINTMENT WITH ANABELA TODAY AT 1130 THAT WAS CONFIRMED. PT HAS NO COMPLAINTS AT THIS TIME. BED IN LOWEST POSITION. CALL LIGHT WITHIN REACH.
[2023-05-15] MEDS ORDERED: NEURONTIN100 MG PO (08:52)
[2023-05-15] MEDS ORDERED: LEVOFLOXACIN500MG PO (08:59)
== END 2023-05-15 10:45 | disposition home health service (06) | DRG 871 ==
LOC: ED 12:49 → ED-I 17:30 → ED 17:49 → MS2 17:50 → ICU 05-13 01:10
PROVIDERS: Family Medicine; Nurse Practitioner Family; ADMIT Student in an Organized Health Care Education/Training Program; ATTEND Student in an Organized Health Care Education/Training Program
PROC: 5A1D70Z Performance of Urinary Filtration, Intermittent, Less than 6 Hours Per Day (ICD-10-PCS; principal; 2023-05-13)
DX: A41.9 Sepsis, unspecified organism (principal); J18.9 Pneumonia, unspecified organism; J96.01 Acute respiratory failure with hypoxia; N18.6 End stage renal disease; I12.0 Hypertensive chronic kidney disease with stage 5 chronic kidney disease or end stage renal disease; N25.81 Secondary hyperparathyroidism of renal origin; E87.1 Hypo-osmolality and hyponatremia; R65.20 Severe sepsis without septic shock; D63.1 Anemia in chronic kidney disease; F17.200 Nicotine dependence, unspecified, uncomplicated; Z99.2 Dependence on renal dialysis
CPT/HCPCS: J0692; J1644; J3370